=== PATIENT | male | born 1985 | race Two or more races ===

== ENCOUNTER 2024-10-09 11:11 | Emergency (ER) | payer MEDICAID, SELFPAY ==
[2024-10-09 11:16] VITALS: BP 138/90; PULSE 61; RESP 16; TEMP 36.8; O2SAT 99; BMI 23.8
--- NOTE | 2024-10-09 12:03 | EDNOTE_ITS ---
ED Wound/Laceration-RME/HPI General Chief Complaint: Wound/Laceration Stated Complaint: LAC TO RIGHT KNEE Time Seen by Provider: 10/09/24 12:02 Arrival date/time: 10/09/24 11:11 RME / HPI RME / HPI narrative: 39-year-old male patient was brought in by coworker for evaluation regarding laceration to the right medial knee, incident happened few minutes prior to ER visit, patient was cutting trees and lost balance and sustained 2 cm gaping laceration to the medial side of the knee, with minimal bleeding. Patient is ambulatory. Denies any other complaints. Related Data Home Medications ?Medication ?Instructions ?Recorded ?Confirmed divalproex 500 mg tablet,delayed 1,000 mg PO QDAY 02/14/19 release (Depakote) lithium carbonate 600 mg capsule 600 mg PO TID 02/14/19 lorazepam 0.5 mg tablet 0.5 mg PO QD-BID PRN 02/14/19 propranolol 20 mg tablet 20 mg PO QDAY 02/14/19 quetiapine 100 mg tablet (Seroquel) 200 mg PO QDAY 02/14/19 Previous Rx's ?Medication ?Instructions ?Recorded azelastine 0.05 % eye drops 1 drp ophthalmic (eye) BID #6 mL 02/14/19 trifluridine 1 % eye drops 1 drop ophthalmic (eye) Q4H #7.5 mL 02/14/19 (Viroptic) ibuprofen 800 mg tablet 800 mg PO TID PRN pain #30 tabs 10/21/19 cephalexin 500 mg capsule 500 mg PO TID 7 days #21 caps 10/09/24 ibuprofen 800 mg tablet 800 mg PO TID PRN pain #20 tabs 10/09/24 Allergies Allergy/AdvReac Type Severity Reaction Status Date / Time No Known Allergies Allergy Verified 02/14/19 12:05 Review of Systems Review of Systems Narrative Review of Systems: Review of system reviewed and within normal limits except mentioned in HPI ED Exam Narrative Physical exam: VITAL SIGNS: Reviewed. GENERAL APPEARANCE: Alert and interactive, follows commands, no acute distress, HEAD AND FACE: Non-traumatic. ENT: PERRL, pink conjunctivitis, eyelid no trauma, Mucous membrane moist. NECK: Supple, nontender, no nuchal rigidity. RECTAL: Deferred. GENITAL: Deferred. NEUROLOGICAL: Gross motor function intact sensory function intact, Appropriate for age. MUSCULOSKELETAL: low back nontender, full range of motion. EXTREMITIES: 2 cm laceration medial aspect of the right knee, with bleeding, minimal tenderness full range of motion. SKIN: Color pink, dry, no rash, no lacerations, no abrasions, no contusions. LYMPHATICS: Deferred. Course Quality Measures none Orders Category Date Time Status Ibuprofen Tab [Motrin Tab] Med 10/09/24 12:02 Discontinued 800 mg PO X1 ONE Tet,Diphth,Pertuss(Acell)-Tdap [Boostrix Vacc] Med 10/09/24 12:02 Discontinued 0.5 ml IMI .ONCE ONE Vital Signs Vital signs: Vital Signs Temperature 98.2 F 10/09/24 11:16 Pulse Rate 61 10/09/24 11:16 Respiratory Rate 16 10/09/24 11:16 Blood Pressure 138/90 H 10/09/24 11:16 Pulse Oximetry (%) 99 10/09/24 11:16 Oxygen Delivery Method Room Air 10/09/24 11:16 Procedures -ED Laceration Laceration 1: Site: other (Knee) Side (If applicable): right Size (cm): 2 Description: linear Depth: simple, single layer Local Anesthetic: lidocaine 1% Amount of anesthesia used (mL): 5 Pre-repair: wound explored, irrigated extensively and deep structures intact Skin layer closed with: other (Silk) Size (cm): 3-0 and other Number of sutures: 5 Technique: simple, interrupted Wound / Laceration MDM Narrative MDM Narrative:: Imaging is not needed this time. Repair and suturing was done by me, see procedure notes Patient data External records reviewed:: None Clinical information provided by:: none Social determinants that could affect healthcare access:: none Patient has the following chronic illnesses:: None How is presenting disease/condition affected by chronic disease/condition?: uneffected by Evaluation data The following diagnostics were reviewed and interpreted by me:: other (specify) (None) Lab and/or radiology exams considered but not ordered:: None Interpretation Summary: None Medications / Prescriptions Medications or Prescriptions considered but not ordered:: Plan Medication administrations:: Medication Administration History Discontinued Medications Diphtheria/Tetanus/Acell Pertussis (Diphth,Pertuss(Acell),Tet Vac 0.5 Ml Vial) 0.5 ml IMi .ONCE ONE Stop: 10/09/24 12:03 Ibuprofen (Ibuprofen Tab 400 Mg Tablet) 800 mg PO X1 ONE Stop: 10/09/24 12:03 Motrin. Boostrix was not given patient received the medications last year Consultations Consultation(s) initiated? (list below): No Diagnosis Wound Differential Diagnosis: laceration, abrasion and avulsion of skin Most likely diagnosis given after review of the tests above:: Knee laceration Admission Indicated Admission indicated?: not indicated Admission Request Was there a request for admission?: No Admission Attestation Admission request attestation: None Disposition Plan Disposition Plan: Discharge Discharge Attestation Discharge Attestation: The patient was given an opportunity to ask questions and understood the discharge instructions. Discharge instructions specifically effects, indications for sooner follow up or return to the emergency department, and the expected course of current diagnosis. Patient condition: Stable Discharge Plan Plan Patient Disposition: HOME (Self Care) Disposition Comment: stable Prescriptions/Referrals Prescriptions/Med Rec: New cephalexin 500 mg capsule 500 mg PO TID 7 Days Qty: 21 0RF ibuprofen 800 mg tablet 800 mg PO TID PRN (Reason: pain) Qty: 20 0RF No Action divalproex [Depakote] 500 mg tablet,delayed release (DR/EC) 1,000 mg PO QDAY quetiapine [Seroquel] 100 mg tablet 200 mg PO QDAY azelastine 0.05 % drops 1 drp OPHTHALMIC BID Qty: 6 0RF trifluridine [Viroptic] 1 % drops 1 drop OPHTHALMIC Q4H Qty: 7.5 0RF Rx Instructions: administer 9 doses per day while awake lithium carbonate 600 mg capsule 600 mg PO TID propranolol 20 mg tablet 20 mg PO QDAY lorazepam 0.5 mg tablet 0.5 mg PO QD-BID PRN ibuprofen 800 mg tablet 800 mg PO TID PRN (Reason: pain) Qty: 30 0RF Problem List Clinical Impression: Laceration of knee Patient/Caregiver Discharge Instructions Discharge Activity: activity as tolerated Education Materials: ED Laceration: All Closures Additional Instructions: Thank you for the opportunity for serving you today. You are stable for discharged . You are advised to: Follow-up with your PCP in 1 to 2 days Return to ED for worsening of symptoms Increase oral fluids Take medication as prescribed For removal of sutures in 7 to 10 days Print Language: [employer] Stand Alone Forms: Monica Award Info., Patient Portal Info Letter MARTY/BUILDING MAINTENANCE CUSTODIAN Supervising Physician PA/BUILDING MAINTENANCE CUSTODIAN Supervising Physician: MD Dk
--- NOTE | 2024-10-09 13:02 | PC.NURSE ---
Pt. here from home to bed 12 for laceration to right knee while using a chain saw cutting a tree branch, pt. states at first laceration did not bleed very much, pt. states when it started to bleed he came in.
[2024-10-09] MEDS: IBUPROFEN TAB 400 MG TABLET 800 MG PO (13:03)
[2024-10-09 13:05] VITALS: BP 146/94; PULSE 60; RESP 18; TEMP 36.6; O2SAT 97
== END 2024-10-09 13:05 | disposition home or self-care (01) ==
LOC: SERX 15:04
PROVIDERS: Emergency Provider Emergency Medicine
DX: S81.011A Laceration without foreign body, right knee, initial encounter (principal); W45.8XXA Other foreign body or object entering through skin, initial encounter; Z23 Encounter for immunization
CPT/HCPCS: 12001; 90471; 99283; A9270